=== PATIENT | female | born 1975 | race Two or more races ===

== ENCOUNTER 2021-05-20 08:30 | Day surgery (SDC) | payer BC ==
[2021-05-11 14:27] VITALS: BMI 26.9
[2021-05-20] MEDS ORDERED: LIDOCAINE HCL 1%, 10 MG/ML (20ML VIAL) ONE (08:44)
[2021-05-20] MEDS ORDERED: BUPIVACAINE HCL 100 ML ONE (08:44)
[2021-05-20] MEDS ORDERED: ceFAZolin SODIUM 1 GM VIAL ONE (09:26)
[2021-05-20] MEDS ORDERED: LIDOCAINE HCL/PF 2% SDV 5ML VIAL ONE (09:26)
[2021-05-20] MEDS ORDERED: SODIUM CHLORIDE 0.9% P/F 10 ML VIAL IJ ONE (09:26)
[2021-05-20] MEDS ORDERED: KETOROLAC TROMETHAMINE 30 MG/1 ML VIAL ONE (09:26)
[2021-05-20] MEDS ORDERED: ONDANSETRON 4 MG/2 ML VIAL ONE (09:26)
[2021-05-20] MEDS ORDERED: DEXAMETHASONE SOD PHOSPHATE 4 MG/1 ML VIAL ONE (09:26)
[2021-05-20] MEDS ORDERED: ROPIVACAINE HCL 0.5% 30ML VIAL ONE (09:39)
[2021-05-20] MEDS ORDERED: MIDAZOLAM HCL 2 MG/2 ML SINGLE DOSE VIAL ONE (09:39)
[2021-05-20] MEDS ORDERED: PROPOFOL 20 ML ONE (10:10)
[2021-05-20] MEDS ORDERED: methylPREDNISolone ACET (DEPO) 40 MG/1 ML VIAL ONE (10:35)
[2021-05-20] MEDS ORDERED: DESFLURANE GAS 240 ML BOTTLE IH ONE (10:40)
[2021-05-20] MEDS ORDERED: ePHEDrine SULFATE 50 MG/1 ML AMPULE ONE (11:13)
[2021-05-20] MEDS ORDERED: oxyCODONE HCL 5 MG TABLET PO PRN ×2 (11:48)
[2021-05-20] MEDS ORDERED: ACETAMINOPHEN 1000 MG/100 ML VIAL (NON FORMULARY) IVPB ONE (11:48)
[2021-05-20] MEDS ORDERED: LACTATED RINGERS SOLUTION 1,000 ML IV SCH (12:00)
[2021-05-20] MEDS ORDERED: ACETAMINOPHEN INJECTION 100 ML IVPB ONE (12:09)
[2021-05-20 12:43] VITALS: TEMP 97.7
[2021-05-20 14:22] VITALS: BP 135/80; PULSE 81
== END 2021-05-20 13:30 | disposition home or self-care (01) ==
LOC: FASU 08:30
PROVIDERS: ATTEND Orthopaedic Surgery
PROC: 0JBD0ZZ Excision of Right Upper Arm Subcutaneous Tissue and Fascia, Open Approach (ICD-10-PCS; 2021-05-20)
PROC: 0LQ30ZZ Repair Right Upper Arm Tendon, Open Approach (ICD-10-PCS; principal; 2021-05-20 10:49)
DX: M77.11 Lateral epicondylitis, right elbow (principal); M66.221 Spontaneous rupture of extensor tendons, right upper arm
CPT/HCPCS: 84703; 94760; J0131